=== PATIENT | female | born 1980 | race American Indian/Alaskan Native ===

== ENCOUNTER 2017-07-14 10:25 | Emergency (ER) | payer MEDICAID ==
[2017-07-14] MEDS ORDERED: Albuterol 0.5% Inhal Sol (2.5 mg/0.5 ml) UD IH PRN (10:43)
[2017-07-14 10:48] VITALS: RESP 18; TEMP 98.6; BMI 31.1
--- NOTE | 2017-07-14 10:49 | ED PDOC ---
Arrival/HPI - General Chief Complaint: Cough, Cold, Congestion Time Seen by Provider: 07/14/17 10:30 Historian: Patient - History of Present Illness Narrative History of Present Illness (Text): you were treated in the ED today for have sinus congestion, cough with white and at times yellow sputum and when you cough you get some chest pain but when not coughing no chest pain and otherwise without any nausea/vomiting/headache/ dizziness/difficulty breathing/abdomen pain/numbness/tingling/loss of limb function/pain with urination/travel/prior blood clots/prior cancer history/ hormonal use. 07/14/17 10:45 Time/Duration: Other (2 days) Symptom Onset: Gradual Symptom Course: Unchanged Quality: Other (with cough) Activities at Onset: Rest Context: Sitting Past Medical History - Provider Review Nursing Documentation Reviewed: Yes - Travel History Have you recently traveled outside [place] w/in the past 3 mons?: No - Psychiatric Hx Substance Use: No - Surgical History Hx Section: Yes (x2) Family/Social History - Physician Review Nursing Documentation Reviewed: Yes Family/Social History: No Known Family HX Smoking Status: Light Smoker < 10 Cigarettes Daily Hx Alcohol Use: No Hx Substance Use: No Allergies/Home Meds Allergies/Adverse Reactions: Allergies No Known Allergies Allergy (Verified 07/14/17 10:38) Review of Systems - Review of Systems Constitutional: Normal Eyes: Normal ENT: Sinus Congestion Respiratory: Cough Cardiovascular: Other (chest pain with coughing and none without coughing) Gastrointestinal: Normal Genitourinary Female: Normal Musculoskeletal: Normal Skin: Normal Neurological: Normal Endocrine: Normal Hemo/Lymphatic: Normal Psychiatric: Normal Physical Exam Vital Signs Reviewed: Yes Vital Signs Temp Pulse Resp BP Pulse Ox 07/14/17 12:55 77 18 109/69 97 07/14/17 10:42 98.6 F 84 18 135/53 L 99 Temperature: Afebrile Blood Pressure: Hypertensive Pulse: Regular Respiratory Rate: Normal Appearance: Positive for: Well-Appearing, Non-Toxic, Comfortable Pain Distress: None Mental Status: Positive for: Alert and Oriented X 3 - Systems Exam Head: Present: Atraumatic, Normocephalic Pupils: Present: PERRL Extroacular Muscles: Present: EOMI Conjunctiva: Present: Normal Mouth: Present: Moist Mucous Membranes Pharnyx: Present: Normal Nose (External): Present: Atraumatic Nose (Internal): Present: Boggy Neck: Present: Normal Range of Motion Respiratory/Chest: Present: Clear to Auscultation, Good Air Exchange Cardiovascular: Present: Regular Rate and Rhythm Abdomen: No: Tenderness, Distention, Normal Bowel Sounds, Peritoneal Signs, Rebound, Guarding, McBurney's Point Tender, Rovsing's Sign Present, Hernias, Feeding Tubes, Ostomy Tubes, Mass/Organomegaly, Scars, Other Back: Present: Normal Inspection Upper Extremity: Present: Normal Inspection Lower Extremity: Present: Normal Inspection Neurological: Present: GCS=15, CN II-XII Intact, Speech Normal, Motor Func Grossly Intact Skin: Present: Warm, Normal Color Psychiatric: Present: Alert, Oriented x 3, Normal Insight, Normal Concentration Medical Decision Making ED Course and Treatment: you were treated in the ED today for have sinus congestion, cough with white and at times yellow sputum and when you cough you get some chest pain but when not coughing no chest pain and otherwise without any nausea/vomiting/headache/ dizziness/difficulty breathing/abdomen pain/numbness/tingling/loss of limb function/pain with urination/travel/prior blood clots/prior cancer history/ hormonal use. You were otherwise breathing easily, pink lips, smiling and talking with with your daughter, good strength/sensation, alert/oriented, walking easily, clear lungs, no abdomen tenderness, no fever temp 98.6, stable heart rate 84, stable breathing rate 18, excellent oxygen level 99% room air, elevated blood pressure 135/53 which we recommend repeat in 2-3 days primary care office to determine further treatment, influenza negive, urine test negative, radiology chest xray no active disease, prednisone, albuterol, motrin done in the ED with improvement, counselled to stop smoking and thus discharged home with daughter. 1. Recommend prednisone as directed for breathing /coughing relief. 2. Recommend albuterol inhaler 1-2 puffs every 2-4 hours as needed for coughing/reactive airway relief. 3. Recommend follow-up primary care 2-3 days to review symptoms. 4. If any worsening pain, fever, chills, nausea, vomiting, difficulty breathing, numbness, loss of limb function, pain with urination or any medical condition then return to the ED. 07/14/17 10:49 07/14/17 12:05 CXR: Creator: Becky Rogers MD FINDINGS: LINES AND TUBES: None. LUNG AND PLEURA: The lungs are well inflated and clear. HEART AND MEDIASTINUM: The heart is not enlarged. The hilar and mediastinal contours are within normal limits. SKELETAL STRUCTURES: The bony structures are within normal limits for the patient's age. VISUALIZED UPPER ABDOMEN: Normal. OTHER FINDINGS: None. IMPRESSION: No active pulmonary disease. 07/14/17 13:26 no sign of thrombosis. PERC negative. Reassessment Condition: Improved - Lab Interpretations Lab Results: Lab Results 07/14/17 10:50: Influenza Typ A,B (EIA) Negative for flu a/b - RAD Interpretation Radiology Orders: 07/14/17 10:42 CHEST TWO VIEWS (PA/LAT) [RAD] [employer] Sales Agent: Radiologist - Medication Orders Current Medication Orders: Albuterol Sulfate (Albuterol 0.5% Inhal Daniella (2.5 Mg/0.5 Ml) Ud) 2.5 mg IH [id number] PRN PRN Reason: Shortness of Breath Discontinued Medications Ibuprofen (Motrin Tab) 800 mg PO STAT STA Stop: 07/14/17 10:50 Last Admin: 07/14/17 11:34 Dose: 800 mg Prednisone (Prednisone Tab) 60 mg PO STAT ONE Stop: 07/14/17 10:44 Last Admin: 07/14/17 10:53 Dose: 60 mg Disposition/Present on Arrival - Present on Arrival Any Indicators Present on Arrival: No History of DVT/PE: No History of Uncontrolled Diabetes: No Urinary Catheter: No History of Decub. Ulcer: No History Surgical Site Infection Following: None - Disposition Have Diagnosis and Disposition been Completed?: Yes Diagnosis: Bronchitis Disposition: HOME/ ROUTINE Disposition Time: 13:27 Patient Plan: Discharge Condition: IMPROVED Additional Instructions: you were treated in the ED today for have sinus congestion, cough with white and at times yellow sputum and when you cough you get some chest pain but when not coughing no chest pain and otherwise without any nausea/vomiting/headache/ dizziness/difficulty breathing/abdomen pain/numbness/tingling/loss of limb function/pain with urination/travel/prior blood clots/prior cancer history/ hormonal use. You were otherwise breathing easily, pink lips, smiling and talking with with your daughter, good strength/sensation, alert/oriented, walking easily, clear lungs, no abdomen tenderness, no fever temp 98.6, stable heart rate 84, stable breathing rate 18, excellent oxygen level 99% room air, elevated blood pressure 135/53 which we recommend repeat in 2-3 days primary care office to determine further treatment, influenza negive, urine test negative, radiology chest xray no active disease, prednisone, albuterol, motrin done in the ED with improvement, counselled to stop smoking and thus discharged home with daughter. 1. Recommend prednisone as directed for breathing /coughing relief. 2. Recommend albuterol inhaler 1-2 puffs every 2-4 hours as needed for coughing/reactive airway relief. 3. Recommend follow-up primary care 2-3 days to review symptoms. 4. If any worsening pain, fever, chills, nausea, vomiting, difficulty breathing, numbness, loss of limb function, pain with urination or any medical condition then return to the ED. Prescriptions: Albuterol HFA [Ventolin HFA 90 mcg/actuation (8 g)] 2 puff IH [id number] PRN 5 Days #1 bottle PRN Reason: reactive airway predniSONE [Prednisone] 20 mg PO DAILY 5 Days #5 tab Referrals: Quiana Edgar [Primary Care Provider] - Follow up with primary Forms: [facility] ([place]), WORK NOTE
[2017-07-14 12:55] VITALS: BP 109/69; PULSE 77; O2SAT 97
== END 2017-07-14 13:42 | disposition home or self-care (01) ==
LOC: ED 10:25
DX: J40 Bronchitis, not specified as acute or chronic (principal); F17.210 Nicotine dependence, cigarettes, uncomplicated